=== PATIENT | male | born 2000 | race Caucasian/White ===

== ENCOUNTER 2022-11-03 16:05 | Emergency (ER) | payer MEDICAID ==
[~2022-11-03] VITALS: Ht 175.3 cm; Wt 68.2 kg
[~2022-11-03 16:05] MED LIST: AMOXICILLI400 MG/51 PO; APAP80 MG/0.8 PO
[2022-11-03 16:15] VITALS: BP 151/73; TEMP 98.4
[2022-11-03 17:28] VITALS: PULSE 87
== END 2022-11-03 17:28 | disposition home or self-care (01) ==
LOC: COL.ER 16:05
DX: R07.89 Other chest pain (principal)